=== PATIENT | female | born 1950 | race Two or more races ===

== ENCOUNTER 2022-10-06 15:07 | Inpatient (IN) | payer MEDICARE, OTHER ==
[~2022-10-06] VITALS: Ht 154.9 cm; Wt 88.5 kg
[~2022-10-06 15:07] MED LIST: AMIT50TA3 PO; APIX5TAB MT; BROM5CAP3 PO; CALC0.253 MT; CEPH500C2 PO; ERGO500093 PO; FAMO20TA8 MT; FURO20TA4 MT; HYDROCORT PO; LEVO25TA9 MT; METO25TA4 PO; QUET50TA79; TRAZ-257 MT
[2022-10-06] MEDS ORDERED: FAMO-131 PO (17:37)
[2022-10-06] MEDS ORDERED: HYDR-3642 PO (17:37)
[2022-10-06] MEDS ORDERED: METO25TA4 PO (17:38)
[2022-10-06] MEDS ORDERED: MAG30ORA PO (17:38)
[2022-10-06] MEDS ORDERED: LEVO25TA7 PO (17:38)
[2022-10-06] MEDS ORDERED: ZOLP5TAB2 PO (17:38)
[2022-10-06] MEDS ORDERED: QUET50TA PO (17:38)
[2022-10-06] MEDS ORDERED: APIX5TAB PO (17:38)
[2022-10-06] MEDS ORDERED: MAGN400O6 PO (17:38)
[2022-10-06] MEDS ORDERED: FLUO20TA28 PO (17:38)
[2022-10-06] MEDS ORDERED: ERGO500093 PO (17:38)
[2022-10-06] MEDS ORDERED: CALC0.253 PO (17:38)
[2022-10-06] MEDS ORDERED: ACET-868 PO (17:38)
[2022-10-06] MEDS ORDERED: QUET25TA PO (17:38)
[2022-10-06 18:37] VITALS: BP 102/59; TEMP 97.9
[2022-10-06] MEDS ORDERED: BLOOD SUGAR DIAGNOSTIC 1 EACH STRIP IN ONE (19:00)
[2022-10-06] MEDS ORDERED: MAGNESIUM HYDROXIDE 30 ML UDC PO PRN (19:00)
[2022-10-06] MEDS ORDERED: MAG HYDROX/AL HYDROX/SIMETH 30 ML UDC PO PRN (19:00)
--- NOTE | 2022-10-06 19:00 | NUR ---
NURSE NOTE (ADMIT): PT IS A 72 YEAR OLD FEMALE TRANSFERRED FROM [facility] AND PLACED ON A 5150 HOLD FOR GD/DANGER TO OTHERS. CATHI REPORTS THAT SHE DOES HEAR VOICES AT TIMES AND FEELS ANXIOUS. SHE ADMITS TO GETTING ANGRY AT STAFF AND ARGUMENTATIVE. PT IS ALERT/ORT X3, GUARDED, RESTLESS, ANXIOUS, NEEDY, TANGENTIAL. PT WAS UNKEMPT ON ARRIVAL, BUT BRUSHED HAIR WHEN INFORMED THAT WE NEED TO TAKE HER PICTURE. BOTH DR ESTRELLA AND JOHNNY HARRISON ARE AWARE OF PTS ADMISSION. PSYCH ADMISSION ORDERS IN PLACE. PTS HANDBOOK GIVEN TO PT. DISCOLORATION NOTED TO BILAT ARMS, AND REDNESS TO SACRAL/ BUTTOCKS AREA. Z GUARD ORDERED. PT IN STABLE COND AT THIS TIME. WILL CONT TO MONITOR FOR SAFETY AND BEHAVIOR.
[2022-10-06 20:00] VITALS: BP 100/66; TEMP 98.1; O2SAT 100
[2022-10-06] MEDS: Z GUARD REMEDY 4 OZ OINT TP SCH (21:05)
[2022-10-06] MEDS: TEMAZEPAM 7.5 MG CAPSULE PO PRN (22:33)
[2022-10-06] MEDS: ACETAMINOPHEN 325 MG TABLET PO PRN (22:33)
--- NOTE | 2022-10-06 22:33 | NUR ---
NOTE; PATIENT REQUESTED TYLENOL PO MED FOR GENERAL BODY PAIN.WILL CONTINUE TO MONITOR
--- NOTE | 2022-10-06 22:35 | NUR ---
NOTE; PATIENT REQUESTED RESTORIL PO MED FOR INSOMNIA.WILL CONTINUE TO MONITOR
[2022-10-07 08:00] VITALS: BP 78/53; TEMP 97.9; O2SAT 96
[2022-10-07] MEDS: Z GUARD REMEDY 4 OZ OINT TP SCH ×2 (08:54→22:04)
--- NOTE | 2022-10-07 09:03 | NUR ---
CARLEE Initial Discharge Note: Patient currently resides at [address] [address]; ). CARLEE contacted Polly denson to see if pt is welcomed back. Polly will discuss with treatment team and let this magazine writer know. CARLEE will contact pt's brother Lito ([phone]) and discuss treatment/discharge plan. CARLEE will work with the MD, family, and treatment team.
--- NOTE | 2022-10-07 09:05 | NUR ---
CARLEE Clinical Note: Pt placed on a 5150 hold for danger to others and GD. Per hold, pt was agitated at her facility. Patient currently resides at [place] [id number]; ). CARLEE contacted Polly denson to see if pt is welcomed back. Polly will discuss with treatment team and let this life underwriter know. CARLEE will contact pt's brother Lito ([phone]) and discuss treatment/discharge plan.
[2022-10-07 09:15] LABS: ALANINE AMINOTRANSFERASE 19 U/L (12-78); ALBUMIN 3.2 g/dL (3.4-5.0); ALKALINE PHOSPHATASE 93 U/L (46-116); BILIRUBIN,TOTAL 0.5 mg/dL (0.2-1.0); CALCIUM, SERUM 8.7 mg/dL (8.5-10.1); CARBON DIOXIDE 25 mmol/L (21-32); CHLORIDE 108 mmol/L (98-107); CREATININE 1.7 mg/dL (0.6-1.3); GLUCOSE 109 mg/dL (74-106); POTASSIUM 4.2 mmol/L (3.5-5.1); SODIUM SERUM 141 mmol/L (136-145); TOTAL PROTEIN, SERUM 6.6 g/dL (6.4-8.2); UREA NITROGEN, BLOOD 31 mg/dL (7-18)
[2022-10-07 09:28] LABS: ASPARTATE AMINOTRANSFERASE 17 U/L (15-37)
[2022-10-07 09:34] LABS: BASOPHILS % (AUTO) 0.7 % (0.0-2.0); EOSINOPHILS % (AUTO) 2.1 % (0.0-6.0); HEMATOCRIT 34 % (33-45); HEMOGLOBIN 10.9 g/dL (11.5-14.8); LYMPHOCYTES # (AUTO) 1.8 K/uL (0.8-4.8); LYMPHOCYTES % (AUTO) 32.3 % (20.0-44.0); MEAN CORPUSCULAR HGB CONC 33 g/dl (31.0-36.0); MEAN CORPUSCULAR VOLUME 92 fL (82-100); MONOCYTES # (AUTO) 0.4 K/uL (0.1-1.30); MONOCYTES % (AUTO) 7.8 % (2.0-12.0); NEUTROPHILS # (AUTO) 3.2 K/uL (1.8-8.9); NEUTROPHILS % (AUTO) 57.1 % (43.0-81.0); PLATELET COUNT (AUTO) 307 K/uL (150-450); RED BLOOD CELL COUNT(AUTO) 3.65 MIL/uL (4.0-5.2); WHITE BLOOD COUNT (AUTO) 5.5 K/uL (4.3-11.0)
[2022-10-07 09:41] LABS: CHOLESTEROL 172 mg/dL (<200); HDL CHOLESTEROL 44 mg/dL (40-60); LDL 108 mg/dL (0-99); TRIGLYCERIDES 92 mg/dL (30-150)
[2022-10-07] MEDS ORDERED: QUETIAPINE FUMARATE 25 MG TABLET PO PRN (10:30)
[2022-10-07] MEDS: LORAZEPAM 0.5 MG TABLET PO PRN (13:13)
[2022-10-07] MEDS: ACETAMINOPHEN 325 MG TABLET PO PRN (13:13)
[2022-10-07] MEDS ORDERED: ACETAMINOPHEN 325 MG TABLET PO PRN (14:00)
[2022-10-07] MEDS ORDERED: MAG HYDROX/AL HYDROX/SIMETH 30 ML UDC PO PRN (14:00)
[2022-10-07 16:00] VITALS: BP 90/55; TEMP 97.8; O2SAT 96
[2022-10-07] MEDS: QUETIAPINE FUMARATE 25 MG TABLET PO SCH (17:57)
[2022-10-07] MEDS: FAMOTIDINE (20 MG) 20 MG TABLET PO SCH (17:57)
[2022-10-07] MEDS: QUETIAPINE FUMARATE 100 MG TABLET PO SCH (17:57)
[2022-10-07] MEDS: hydrOXYzine 10 MG TABLET PO SCH (17:58)
[2022-10-07 20:00] VITALS: BP 106/68; TEMP 97.4; O2SAT 97
--- NOTE | 2022-10-07 20:32 | NUR ---
AMMUNITION ASSEMBLY LABORER NOTE: RECEIVED PATIENT IN BED AWAKE,ALERT AND ORIENTED X3,BREATHING EVEN AND NON--LABORED .PATIENT IS DISPLAYING NO S/S OF APPARENT DISTRESS.PATIENT IS ANXIOUS, NEEDY,LOUD ,INTRUSIVE,RESTLESS AT TIMES.PATIENT IS CALM AT THIS TIME.NO C/O PAIN AT THIS TIME.PATIENT ASSISTED ON TURNING AND REPOSITIONING Q2H FOR COMFORT AND CIRCULATION.ALL NEEDS ANTICIPATED.BED IN LOWEST,LOCKED POSITION WITH SIDE RAILS UPX2.WILL CONTINUE TO MONITOR FOR SAFETY AND BEHAVIOR.
[2022-10-07] MEDS: APIXABAN 5 MG TABLET PO SCH (22:03)
[2022-10-07] MEDS: TEMAZEPAM 7.5 MG CAPSULE PO PRN (22:08)
--- NOTE | 2022-10-07 22:08 | NUR ---
NOTE:PATIENT UNABLE TO SLEEP.PATIENT REQUESTED RESTORIL TO HELP HER TO SLEEP.ADMINISTERED RESTORIL 7.5 MG PO ORDER.WILL CONTINUE TO MONITOR.
--- NOTE | 2022-10-08 07:30 | NUR ---
RN OPENING NOTE: RECEIVED PATIENT IN SLEEPING IN BED,ALERT AND ORIENTED X3,BREATHING EVEN AND NON--LABORED .PATIENT IS DISPLAYING NO S/S OF APPARENT DISTRESS.PATIENT IS ANXIOUS, NEEDY,LOUD ,INTRUSIVE,RESTLESS AT TIMES.PATIENT IS CALM AT THIS TIME.NO C/O PAIN AT THIS TIME.PATIENT ASSISTED ON TURNING AND REPOSITIONING Q2H FOR COMFORT AND CIRCULATION. WILL ADMINISTER ALL SCHEDULED MEDS ORDERED. .BED IN LOWEST,LOCKED POSITION WITH SIDE RAILS UPX2.WILL CONTINUE TO MONITOR FOR SAFETY AND BEHAVIOR.
[2022-10-08 08:00] VITALS: BP 100/65; TEMP 97.8; O2SAT 96
[2022-10-08] MEDS: hydrOXYzine 10 MG TABLET PO SCH ×2 (08:53→16:32)
[2022-10-08] MEDS: LEVOTHYROXINE SODIUM 25 MCG TABLET PO SCH (08:53)
[2022-10-08] MEDS: QUETIAPINE FUMARATE 100 MG TABLET PO SCH ×2 (08:53→16:32)
[2022-10-08] MEDS: QUETIAPINE FUMARATE 25 MG TABLET PO SCH ×2 (08:53→16:32)
[2022-10-08] MEDS: FAMOTIDINE (20 MG) 20 MG TABLET PO SCH ×2 (08:53→16:32)
[2022-10-08] MEDS: APIXABAN 5 MG TABLET PO SCH ×2 (08:54→21:27)
[2022-10-08] MEDS: METOPROLOL SUCCINATE 25 MG TAB.SR.24H PO SCH (09:00)
[2022-10-08] MEDS: Z GUARD REMEDY 4 OZ OINT TP SCH ×2 (09:04→21:27)
[2022-10-08 16:00] VITALS: BP 112/66; TEMP 97.8; O2SAT 94
--- NOTE | 2022-10-08 18:08 | NUR ---
GPS RN CLOSING NOTE: PATIENT IN RESTING IN BED,ALERT AND ORIENTED X3,BREATHING EVEN AND NON--LABORED .PATIENT IS DISPLAYING NO S/S OF APPARENT DISTRESS.PATIENT IS ANXIOUS, NEEDY,LOUD, ISOLATIVE, ,INTRUSIVE,RESTLESS AT TIMES.PATIENT IS CALM AT THIS TIME.NO C/O PAIN AT THIS TIME.PATIENT ASSISTED ON TURNING AND REPOSITIONING Q2H FOR COMFORT AND CIRCULATION. WILL ADMINISTER ALL SCHEDULED MEDS ORDERED. MEDICATION COMPLIANT BUT NEEDS REINFORCEMENT.BED IN LOWEST,LOCKED POSITION WITH SIDE RAILS UPX2.WILL CONTINUE TO MONITOR FOR SAFETY AND BEHAVIOR. WILL ENDORSE TO NEXT SHIFT
[2022-10-08 20:00] VITALS: BP 115/72; TEMP 97.4; O2SAT 97
[2022-10-08] MEDS: TEMAZEPAM 7.5 MG CAPSULE PO PRN (21:27)
[2022-10-09 08:00] VITALS: BP 90/65; TEMP 97.9; O2SAT 99
[2022-10-09] MEDS: LEVOTHYROXINE SODIUM 25 MCG TABLET PO SCH (08:30)
[2022-10-09] MEDS: APIXABAN 5 MG TABLET PO SCH ×2 (08:31→21:27)
[2022-10-09] MEDS: hydrOXYzine 10 MG TABLET PO SCH ×2 (08:32→17:13)
[2022-10-09] MEDS: FAMOTIDINE (20 MG) 20 MG TABLET PO SCH ×2 (08:32→17:13)
[2022-10-09] MEDS: Z GUARD REMEDY 4 OZ OINT TP SCH ×2 (08:33→21:30)
[2022-10-09] MEDS: METOPROLOL SUCCINATE 25 MG TAB.SR.24H PO SCH (08:33)
[2022-10-09 08:35] LABS: BILIRUBIN,URINE NEGATIVE (NEGATIVE); COLOR,URINE YELLOW (YELLOW); LEUKOCYTE ESTERASE ,URINE TRACE (NEGATIVE); NITRITE, URINE POSITIVE (NEGATIVE); PH,URINE 5.5 (5.0-8.0); PROTEIN,URINE NEGATIVE (NEGATIVE); UGLUCOSE NEGATIVE (NEGATIVE); UROBILINOGEN,URINE 0.2 EU/dL (0.2)
[2022-10-09 08:37] LABS: BACTERIA,URINE Many /HPF (None Seen); RBC,URINE 0-2 /HPF (0-2); SQUAMOUS EPITHELIAL CELL,UR Few /HPF (None Seen)
[2022-10-09 08:48] LABS: CALCIUM, SERUM 8.7 mg/dL (8.5-10.1); CARBON DIOXIDE 22 mmol/L (21-32); CHLORIDE 107 mmol/L (98-107); CREATININE 1.4 mg/dL (0.6-1.3); GLUCOSE 88 mg/dL (74-106); POTASSIUM 4.9 mmol/L (3.5-5.1); SODIUM SERUM 138 mmol/L (136-145); UREA NITROGEN, BLOOD 33 mg/dL (7-18)
[2022-10-09] MEDS: QUETIAPINE FUMARATE 100 MG TABLET PO SCH ×2 (09:00→17:13)
[2022-10-09] MEDS: QUETIAPINE FUMARATE 25 MG TABLET PO SCH ×2 (09:00→17:12)
--- NOTE | 2022-10-09 13:23 | NUR ---
mateo held in am due to low bp.dr. kennedy aware.
--- NOTE | 2022-10-09 13:47 | NUR ---
given maalox for indigestion.
--- NOTE | 2022-10-09 15:11 | NUR ---
ua sent on business intelligence developer.now lab doing urine culture.
[2022-10-09 16:00] VITALS: BP 117/73; TEMP 97.8; O2SAT 99
--- NOTE | 2022-10-09 18:31 | NUR ---
demanding and calling out freq.
--- NOTE | 2022-10-09 18:45 | NUR ---
pt. asking for bandaid-rn went in and noted skin tear on dorsal surface of lt. hand.photo taken and steri strips applied.
--- NOTE | 2022-10-09 20:21 | NUR ---
MACHINIST TOOL AND DIE NOTE: RECEIVED PATIENT IN BED AWAKE,ALERT AND ORIENTED X3,BREATHING EVEN AND NON--LABORED,NO SOB..PATIENT IS DISPLAYING NO S/S OF APPARENT DISTRESS.PATIENT IS ANXIOUS, NEEDY,LOUD ,INTRUSIVE,RESTLESS AT TIMES.PATIENT IS CALM AT THIS TIME.NO C/O PAIN AT THIS TIME.PATIENT ASSISTED ON TURNING AND REPOSITIONING Q2H FOR COMFORT AND CIRCULATION.ALL NEEDS ANTICIPATED.BED IN LOWEST,LOCKED POSITION WITH SIDE RAILS UPX2.WILL CONTINUE TO MONITOR FOR SAFETY AND BEHAVIOR.
[2022-10-09] MEDS: TEMAZEPAM 7.5 MG CAPSULE PO PRN (21:31)
--- NOTE | 2022-10-09 21:32 | NUR ---
NOTE:PATIENT UNABLE TO SLEEP.PATIENT REQUESTED RESTORIL TO HELP HER TO SLEEP.ADMINISTERED RESTORIL 7.5 MG PO ORDER.WILL CONTINUE TO MONITOR
--- NOTE | 2022-10-10 07:00 | NUR ---
SCADA TECHNICIAN OPENING NOTE PATIENT AWAKE, ALERT AND ORIENTED X3, DENIES PAIN, DENIES DISCOMFORT AT THIS TIME. NO S/S OF MOOD PROBLEMS NOTED. SAFETY MEASURES IN PLACE, BED LOCKED TO THE LOWEST POSITION, SIDE RAILS UPX2. TABLE AND WALKER WITHIN REACH. CONT. TO MONITOR.
[2022-10-10 08:00] VITALS: BP 113/83; TEMP 97.9; O2SAT 98
[2022-10-10] MEDS: METOPROLOL SUCCINATE 25 MG TAB.SR.24H PO SCH (09:44)
[2022-10-10] MEDS: QUETIAPINE FUMARATE 25 MG TABLET PO SCH ×2 (09:44→18:06)
[2022-10-10] MEDS: QUETIAPINE FUMARATE 100 MG TABLET PO SCH ×3 (09:45→18:07)
[2022-10-10] MEDS: hydrOXYzine 10 MG TABLET PO SCH ×2 (09:45→18:06)
[2022-10-10] MEDS: LEVOTHYROXINE SODIUM 25 MCG TABLET PO SCH (09:45)
[2022-10-10] MEDS: APIXABAN 5 MG TABLET PO SCH ×2 (09:47→21:21)
[2022-10-10] MEDS: Z GUARD REMEDY 4 OZ OINT TP SCH ×2 (09:54→21:36)
[2022-10-10] MEDS: FAMOTIDINE (20 MG) 20 MG TABLET PO SCH ×2 (09:54→18:06)
[2022-10-10] MEDS: LORAZEPAM 0.5 MG TABLET PO PRN (12:42)
--- NOTE | 2022-10-10 12:42 | NUR ---
LASER ENGRAVER NOTE PATIENT C/O OF ANXIETY AND PAIN ON BOTH LEGS. ATIVAN PO GIVEN DIRECTED. ALSO APPLIED WARM BLANKET TO BOTH LEGS. INSTRUCTED TO PATIENT NOT TO GET OUT OF BED WITHOUT ASSISTANCE, THERE IS RISK FOR FALLS DUE TO MEDICATION. PATIENT VERBALIZED UNDERSTANDING INSTRUCTIONS. CONT. TO MONITOR.+
[2022-10-10 16:00] VITALS: BP 92/58; TEMP 97.8; O2SAT 99
[2022-10-10 16:01] VITALS: BP 92/58; TEMP 97.8; O2SAT 99
--- NOTE | 2022-10-10 18:44 | NUR ---
SURFACE LAY OUT TECHNICIAN NOTE SEROQUEL HELD BY DR IKE VARGAS DUE TO LOW B/P 82/63
--- NOTE | 2022-10-10 18:45 | NUR ---
ZIPPER JOINER CLOSING NOTE PATIENT, CALM, AWAKE,ALERT AND ORIENTED X3. DENIES PAIN. NO S/S OF DISCOMFORT NOTED. PATIENT SEROQUEL [address] HOLD PER [address] RAMIRES DUE TO LOW B/P 83/68. PATIENT DENIES DIZZINESS AT PRESENT. PATIENT INSTRUCTED NOT TO GET OUT OF BED WITHOUT ASSISTANCE, DUE TO RISK FOR FALLS. PATIENT VERBALIZED UNDERSTANDING INSTRUCTIONS. SAFETY MEASURES IN PLACE: BED LOCKED TO THE LOWEST POSITION, TABLE WITHIN REACH. I WILL ENDORSE TO THE FOLLOWING NURSE FOR SERGIO.
[2022-10-10] MEDS: TEMAZEPAM 7.5 MG CAPSULE PO PRN (22:07)
--- NOTE | 2022-10-10 22:10 | NUR ---
RN NOTE; PATIENT ASKING FOR SLEEPING PILL,PRN RESTORIL 7.5MG WAS GIVEN.
[2022-10-11 07:31] LABS: CALCIUM, SERUM 8.7 mg/dL (8.5-10.1); CREATININE 1.3 mg/dL (0.6-1.3)
[2022-10-11 08:00] VITALS: BP 96/57; TEMP 98.1; O2SAT 97
[2022-10-11] MEDS: METOPROLOL SUCCINATE 25 MG TAB.SR.24H PO SCH (09:00)
[2022-10-11] MEDS: Z GUARD REMEDY 4 OZ OINT TP SCH ×2 (09:00→21:10)
[2022-10-11] MEDS: QUETIAPINE FUMARATE 25 MG TABLET PO SCH ×2 (09:21→16:42)
[2022-10-11] MEDS: LEVOTHYROXINE SODIUM 25 MCG TABLET PO SCH (09:21)
[2022-10-11] MEDS: FAMOTIDINE (20 MG) 20 MG TABLET PO SCH ×2 (09:21→16:42)
[2022-10-11] MEDS: hydrOXYzine 10 MG TABLET PO SCH ×2 (09:27→16:42)
[2022-10-11] MEDS: APIXABAN 5 MG TABLET PO SCH ×2 (09:29→21:11)
[2022-10-11] MEDS: QUETIAPINE FUMARATE 100 MG TABLET PO SCH ×2 (09:34→16:42)
[2022-10-11] MEDS: CEPHALEXIN MONOHYDRATE 500 MG CAPSULE PO SCH ×2 (12:12→21:10)
--- NOTE | 2022-10-11 14:54 | NUR ---
SW Family Contact: SW attempted to contact pt's brother Lito ([phone]) and left a voicemail.
[2022-10-11 16:00] VITALS: BP 103/65; TEMP 98.1; O2SAT 96
--- NOTE | 2022-10-11 18:49 | NUR ---
GPS RN CLOSING NOTES PATIENT, AWAKE,ALERT AND ORIENTED X3. ANXIOUS. NO S/S OF DISCOMFORT NOTED. PATIENT WAS SHOUTING DURING LUNCH AND ASKING FOR A GRILLED CHEESE SANDWICH BUT THE DIETARY DID NOT ALLOW HER DUE TO HER DIET STATUS. DIETARY ALLOWED HER FOR ANOTHER TYPE OF SANDWICH. PATIENT KEPT ON SHOUTING THAT SHE WANTS TO GO HOME RIGHT AFTER FINISHING THE SANDWICH. EXPLAINED TO HER THAT SHE NEEDS TO BE MONITORED. PATIENT VERBALIZES UNDERSTANDING. ALL DUE MEDS GIVEN. ALL NURSING NEEDS ATTENDED. SAFETY MEASURES IMPLEMENTED: BED LOCKED TO THE LOWEST POSITION. TABLE WITHIN EASY REACH. WILL ENDORSE TO THE THIN FILM TECHNICIAN NURSE FOR CONTINUITY OF CARE.
[2022-10-11] MEDS: LORAZEPAM 0.5 MG TABLET PO PRN (19:28)
[2022-10-12] MEDS: ACETAMINOPHEN 325 MG TABLET PO PRN ×2 (03:03→18:56)
[2022-10-12 08:00] VITALS: BP 100/57; TEMP 98.1; O2SAT 96
[2022-10-12] MEDS: QUETIAPINE FUMARATE 100 MG TABLET PO SCH ×2 (08:35→16:55)
[2022-10-12] MEDS: QUETIAPINE FUMARATE 25 MG TABLET PO SCH (08:35)
[2022-10-12] MEDS: FAMOTIDINE (20 MG) 20 MG TABLET PO SCH ×2 (08:35→16:55)
[2022-10-12] MEDS: CEPHALEXIN MONOHYDRATE 500 MG CAPSULE PO SCH ×2 (08:35→20:56)
[2022-10-12] MEDS: hydrOXYzine 10 MG TABLET PO SCH ×2 (08:35→16:56)
[2022-10-12] MEDS: LEVOTHYROXINE SODIUM 25 MCG TABLET PO SCH (08:35)
[2022-10-12] MEDS: METOPROLOL SUCCINATE 25 MG TAB.SR.24H PO SCH (08:42)
[2022-10-12] MEDS: GABAPENTIN 100 MG CAPSULE PO SCH ×2 (09:16→16:55)
[2022-10-12] MEDS: Z GUARD REMEDY 4 OZ OINT TP SCH ×2 (09:16→20:59)
--- NOTE | 2022-10-12 10:04 | NUR ---
MEDICATION NOTE ELIQUIS MEDICATION WITHDRAWN AGAIN DUE TO MEDICATION WASTE. MEDICATION WAS NOT ADMINISTERED THE FIRST TIME. CHARGE NURSE AWARE
[2022-10-12] MEDS: APIXABAN 5 MG TABLET PO SCH ×2 (10:10→20:58)
--- NOTE | 2022-10-12 11:42 | NUR ---
Court Notification: SW attempted to contact pt's brother Lito ([phone]) to notify of [id number] hearing.
--- NOTE | 2022-10-12 11:42 | NUR ---
Court Hearing: Patient's court hearing for [id number] was today and it was upheld for GD.
--- NOTE | 2022-10-12 13:31 | NUR ---
CARLEE Family Contact: SW spoke with pt's brother Lito ([phone]) and is aware of pt's discharge back to [facility].
[2022-10-12 16:00] VITALS: BP 103/65; TEMP 98.7; O2SAT 97
[2022-10-12] MEDS: LORAZEPAM 0.5 MG TABLET PO PRN (19:45)
[2022-10-12 20:30] VITALS: BP 97/64; TEMP 97.5; O2SAT 97
[2022-10-12] MEDS ORDERED: QUETIAPINE FUMARATE 25 MG TABLET PO SCH (22:00)
[2022-10-12] MEDS: TEMAZEPAM 7.5 MG CAPSULE PO PRN (22:02)
[2022-10-13 07:44] LABS: CALCIUM, SERUM 8.7 mg/dL (8.5-10.1); CARBON DIOXIDE 24 mmol/L (21-32); CHLORIDE 107 mmol/L (98-107); CREATININE 1.4 mg/dL (0.6-1.3); GLUCOSE 81 mg/dL (74-106); POTASSIUM 5.2 mmol/L (3.5-5.1); SODIUM SERUM 140 mmol/L (136-145); UREA NITROGEN, BLOOD 30 mg/dL (7-18)
[2022-10-13 08:00] VITALS: BP 100/57; TEMP 98.1; O2SAT 96
--- NOTE | 2022-10-13 08:05 | NUR ---
GPS RN NOTE:. RECEIVED PT IN BED. ALERT AND ORIENTED X3,BREATHING EVEN AND UNLABORED. PATIENT IS ANXIOUS, NEEDY,LOUD ,INTRUSIVE,RESTLESS AT TIMES.NO C/O PAIN AT THIS TIME.PATIENT ASSISTED ON TURNING AND REPOSITIONING Q2H FOR COMFORT AND CIRCULATION .BED IN LOWEST,LOCKED POSITION WITH SIDE RAILS UPX2.WILL CONTINUE TO MONITOR FOR SAFETY AND BEHAVIOR.
--- NOTE | 2022-10-13 08:10 | NUR ---
CARLEE Discharge Note: Patient will be discharged to longterm facility [facility] [address], [place] [address]; ). Please arrange transportation at 1PM. Eyelet Riveter spoke with Polly board stacker at [facility]; ([phone]), who stated patient will be accepted today. SW contacted pts brother Lito ([phone]) and attempted to leave a voicemail. Patient is alert and oriented x2 and is unable to plan for self-care. Patient denies any suicidal or homicidal ideations. Patient is aware and agreeable with discharge plans. Patient will continue to follow-up with Dr. Martinez (psychiatrist) [address] [facility] [address], [place] [address]; ([phone]) and (Certified Orthotist Practice Manager) Dr. Kay [address] [facility] [address], [place] [address]; ([phone]). Patient presents with euthymic and congruent mood.
[2022-10-13] MEDS: LEVOTHYROXINE SODIUM 25 MCG TABLET PO SCH (08:42)
[2022-10-13] MEDS: FAMOTIDINE (20 MG) 20 MG TABLET PO SCH (08:42)
[2022-10-13] MEDS: CEPHALEXIN MONOHYDRATE 500 MG CAPSULE PO SCH (08:42)
[2022-10-13] MEDS: hydrOXYzine 10 MG TABLET PO SCH (08:42)
[2022-10-13] MEDS: GABAPENTIN 100 MG CAPSULE PO SCH (08:42)
[2022-10-13 08:43] VITALS: BP 100/57
[2022-10-13] MEDS: METOPROLOL SUCCINATE 25 MG TAB.SR.24H PO SCH (08:43)
[2022-10-13] MEDS: APIXABAN 5 MG TABLET PO SCH (08:44)
[2022-10-13] MEDS: Z GUARD REMEDY 4 OZ OINT TP SCH (08:46)
[2022-10-13] MEDS: QUETIAPINE FUMARATE 100 MG TABLET PO SCH (08:46)
--- NOTE | 2022-10-13 10:00 | NUR ---
RN-CO: DR ESTRELLA ORDERED TO DISCONTINUE HOLD AND DISCHARGE PATIENT TO [facility]. NOTED AND PRIMARY RN TANVIR Helms MADE AWARE.
[2022-10-13] MEDS ORDERED: SODIUM POLYSTYRENE SULFONATE 15 G/60 ML BOTTLE PO ONE (10:30)
--- NOTE | 2022-10-13 13:45 | NUR ---
MACHINE BOOKKEEPER NOTE: THIS IS A 72 YR OLD FEMALE D/C TO [facility] REPORT. IN STABLE CONDITION. COMPLIANT WITH MEDS, COOPERATIVE WITH TX PLANS. PT DENIES SI/HI AND INSTRUCTED TO GO TO THE CLOSEST ER IF DEVELOPING SI/HI. BEHAVIOR IMPROVED, PSYCHIATRIC TX PLANS MET, MEDICAL TX PLANS DEFERRED FOR CONTINUAL MONITORING. EDUCATED PT ABOUT AFTER CARE PLANS (EXIT CARE) AND COPY PROVIDED. RETURNED PERSONAL BELONGINGS TO PT. MED RECON WITH PSYC DR. ESTRELLA AND MEDICAL DR. ELLIOTT. REPORT GIVEN TO ERNIE VERGARA. PT SIGNED DISCHARGE PAPERWORK. WOUND PICTURES TAKE AND DOCUMENTED IN CHART. PT LEFT THE UNIT AT 1345. PICKED UP BY [facility] UNIT [id number]. PT LEFT IN STABLE CONDITION.
== END 2022-10-13 13:45 | DRG 885 ==
LOC: GPS 15:07
PROVIDERS: ADMIT Psychiatry & Neurology Psychosomatic Medicine; ATTEND Internal Medicine
DX: F32.3 Major depressive disorder, single episode, severe with psychotic features (principal); N18.9 Chronic kidney disease, unspecified; N17.0 Acute kidney failure with tubular necrosis; E44.0 Moderate protein-calorie malnutrition; I13.0 Hypertensive heart and chronic kidney disease with heart failure and stage 1 through stage 4 chronic kidney disease, or unspecified chronic kidney disease; I48.20 Chronic atrial fibrillation, unspecified; N39.0 Urinary tract infection, site not specified; R45.851 Suicidal ideations; I50.32 Chronic diastolic (congestive) heart failure; F29 Unspecified psychosis not due to a substance or known physiological condition; Z79.01 Long term (current) use of anticoagulants; B96.20 Unspecified Escherichia coli [E. coli] as the cause of diseases classified elsewhere; D63.8 Anemia in other chronic diseases classified elsewhere; I25.10 Atherosclerotic heart disease of native coronary artery without angina pectoris; Z85.038 Personal history of other malignant neoplasm of large intestine; Z86.718 Personal history of other venous thrombosis and embolism; Z86.711 Personal history of pulmonary embolism; F43.10 Post-traumatic stress disorder, unspecified; E88.09 Other disorders of plasma-protein metabolism, not elsewhere classified; E03.9 Hypothyroidism, unspecified; Z68.36 Body mass index [BMI] 36.0-36.9, adult; F60.3 Borderline personality disorder; G47.33 Obstructive sleep apnea (adult) (pediatric); Z90.5 Acquired absence of kidney
CPT/HCPCS: 36415; 80048-TC; 80053-TC; 80061-TC; 81001; 85025-TC; 87086-TC; 97112-TC; 97116-TC; 97530-TC; Q0177

== ENCOUNTER 2023-05-20 11:38 | Inpatient (IN) | payer MEDICARE, OTHER ==
[~2023-05-20] VITALS: Ht 165.1 cm; Wt 105.2 kg
[~2023-05-20 11:38] MED LIST changes: +ACET-868 PO; -AMIT50TA3 PO; -APIX5TAB MT; +APIX5TAB PO; -BROM5CAP3 PO; -CALC0.253 MT; +CALC0.253 PO; -CEPH500C2 PO; +FAMO-131 PO; -FAMO20TA8 MT; +FLUO20TA28 PO; -FURO20TA4 MT; +HYDR-3642 PO; -HYDROCORT PO; +LEVO25TA7 PO; -LEVO25TA9 MT; +MAG30ORA PO; +MAGN400O6 PO; +QUET25TA PO; +QUET50TA PO; -QUET50TA79; -TRAZ-257 MT; +ZOLP5TAB2 PO
[2023-05-20] MEDS ORDERED: QUET50TA PO (12:21)
[2023-05-20] MEDS ORDERED: GABA-532 PO (12:21)
[2023-05-20] MEDS ORDERED: MUPI15CR TP (12:21)
[2023-05-20] MEDS ORDERED: ALLA266C2 TP (12:21)
[2023-05-20] MEDS ORDERED: MAG355OR18 PO (12:21)
[2023-05-20 12:52] LABS: BASOPHILS % (AUTO) 0.4 % (0.0-2.0); EOSINOPHILS # (AUTO) 0.1 K/uL (0.0-0.7); EOSINOPHILS % (AUTO) 0.8 % (0.0-6.0); HEMATOCRIT 27 % (33-45); HEMOGLOBIN 8.3 g/dL (11.5-14.8); MEAN CORPUSCULAR HEMOGLOBIN 29 PG (26.0-33.0); MEAN CORPUSCULAR HGB CONC 31 g/dl (31.0-36.0); MEAN CORPUSCULAR VOLUME 94 fL (82-100); MONOCYTES # (AUTO) 0.6 K/uL (0.1-1.30); MONOCYTES % (AUTO) 6.3 % (2.0-12.0); NEUTROPHILS # (AUTO) 7.6 K/uL (1.8-8.9); NEUTROPHILS % (AUTO) 81.5 % (43.0-81.0); PLATELET COUNT (AUTO) 330 K/uL (150-450); RED BLOOD CELL COUNT(AUTO) 2.84 MIL/uL (4.0-5.2); RED CELL DISTRIBUTION WIDTH 16.3 % (11.5-15.0); WHITE BLOOD COUNT (AUTO) 9.3 K/uL (4.3-11.0)
[2023-05-20 12:55] LABS: CALCIUM, SERUM 7.9 mg/dL (8.5-10.1); CARBON DIOXIDE 26 mmol/L (21-32); CHLORIDE 106 mmol/L (98-107); CREATININE 1.6 mg/dL (0.6-1.3); GLUCOSE 87 mg/dL (74-106); POTASSIUM 4.4 mmol/L (3.5-5.1); SODIUM SERUM 135 mmol/L (136-145); UREA NITROGEN, BLOOD 17 mg/dL (7-18)
[2023-05-20] MEDS ORDERED: Z GUARD REMEDY 4 OZ OINT TP PRN (14:00)
[2023-05-20] MEDS ORDERED: MAG HYDROX/AL HYDROX/SIMETH 30 ML UDC PO PRN (14:00)
[2023-05-20] MEDS ORDERED: MAGNESIUM HYDROXIDE 30 ML UDC PO PRN (14:00)
[2023-05-20] MEDS ORDERED: ONDANSETRON HCL/PF 4 MG/2 ML VIAL IVP PRN (14:00)
[2023-05-20] MEDS ORDERED: ACETAMINOPHEN 325 MG TABLET PO PRN (14:00)
[2023-05-20] MEDS: IV NS 0.9% 1,000 ML BAG IV ONE (14:30)
[2023-05-20 16:50] VITALS: BP 114/47; TEMP 98.5; O2SAT 98
[2023-05-20 20:40] VITALS: BP 114/47; TEMP 98.5; O2SAT 98
[2023-05-20] MEDS: TEMAZEPAM 15 MG CAPSULE PO PRN (23:07)
[2023-05-21 04:00] VITALS: BP 107/72; TEMP 98.6; O2SAT 95
[2023-05-21 07:11] LABS: BASOPHILS % (AUTO) 0.2 % (0.0-2.0); EOSINOPHILS # (AUTO) 0.1 K/uL (0.0-0.7); EOSINOPHILS % (AUTO) 1.1 % (0.0-6.0); HEMATOCRIT 27 % (33-45); HEMOGLOBIN 8.5 g/dL (11.5-14.8); LYMPHOCYTES # (AUTO) 1.1 K/uL (0.8-4.8); MEAN CORPUSCULAR HEMOGLOBIN 30 PG (26.0-33.0); MEAN CORPUSCULAR HGB CONC 31 g/dl (31.0-36.0); MEAN CORPUSCULAR VOLUME 96 fL (82-100); MONOCYTES # (AUTO) 0.7 K/uL (0.1-1.30); MONOCYTES % (AUTO) 7.3 % (2.0-12.0); NEUTROPHILS # (AUTO) 7.7 K/uL (1.8-8.9); NEUTROPHILS % (AUTO) 80.4 % (43.0-81.0); PLATELET COUNT (AUTO) 330 K/uL (150-450); RED BLOOD CELL COUNT(AUTO) 2.84 MIL/uL (4.0-5.2); RED CELL DISTRIBUTION WIDTH 16.9 % (11.5-15.0); WHITE BLOOD COUNT (AUTO) 9.6 K/uL (4.3-11.0)
[2023-05-21] MEDS: PANTOPRAZOLE 40 MG TABLET.DR PO SCH (07:26)
[2023-05-21 07:52] LABS: ALANINE AMINOTRANSFERASE 6 U/L (12-78); ALBUMIN 1.8 g/dL (3.4-5.0); ALKALINE PHOSPHATASE 100 U/L (46-116); ASPARTATE AMINOTRANSFERASE 14 U/L (15-37); BILIRUBIN,DIRECT 0.2 mg/dL (0.0-0.2); BILIRUBIN,TOTAL 0.5 mg/dL (0.2-1.0); CALCIUM, SERUM 8.3 mg/dL (8.5-10.1); CARBON DIOXIDE 21 mmol/L (21-32); CHLORIDE 107 mmol/L (98-107); CREATININE 1.4 mg/dL (0.6-1.3); GLUCOSE 77 mg/dL (74-106); MAGNESIUM 2.2 mg/dL (1.8-2.4); PHOSPHORUS 3.3 mg/dL (2.5-4.9); POTASSIUM 4.3 mmol/L (3.5-5.1); SODIUM SERUM 137 mmol/L (136-145); TOTAL PROTEIN, SERUM 5.8 g/dL (6.4-8.2); UREA NITROGEN, BLOOD 17 mg/dL (7-18)
[2023-05-21 08:00] VITALS: BP 91/53; TEMP 98.7; O2SAT 99
[2023-05-21 09:01] LABS: FERRITIN 46 ng/mL (8-388); THYROID STIMULATING HORMONE 0.427 uIU/mL (0.358-3.74)
[2023-05-21 09:20] LABS: IRON, SERUM 17 ug/dl (50-175); TOTAL IRON BINDING CAPACITY 166 ug/dl (250-450)
[2023-05-21 16:00] VITALS: BP 115/64; TEMP 98.3; O2SAT 99
[2023-05-21] MEDS: SOD FERRIC GLUC 125 MG in IV NS 0.9% 100 ML IV SCH (16:09)
[2023-05-21 20:00] VITALS: BP 123/94; TEMP 98; O2SAT 97
[2023-05-22 04:00] VITALS: BP 95/68; TEMP 98; O2SAT 95
[2023-05-22 07:14] LABS: BASOPHILS % (AUTO) 0.2 % (0.0-2.0); EOSINOPHILS # (AUTO) 0.1 K/uL (0.0-0.7); EOSINOPHILS % (AUTO) 1.5 % (0.0-6.0); HEMATOCRIT 28 % (33-45); HEMOGLOBIN 8.6 g/dL (11.5-14.8); LYMPHOCYTES # (AUTO) 1.2 K/uL (0.8-4.8); MEAN CORPUSCULAR HEMOGLOBIN 30 PG (26.0-33.0); MEAN CORPUSCULAR HGB CONC 31 g/dl (31.0-36.0); MEAN CORPUSCULAR VOLUME 95 fL (82-100); MONOCYTES # (AUTO) 0.7 K/uL (0.1-1.30); MONOCYTES % (AUTO) 7.8 % (2.0-12.0); NEUTROPHILS # (AUTO) 6.4 K/uL (1.8-8.9); NEUTROPHILS % (AUTO) 76.5 % (43.0-81.0); PLATELET COUNT (AUTO) 356 K/uL (150-450); RED CELL DISTRIBUTION WIDTH 16.6 % (11.5-15.0); WHITE BLOOD COUNT (AUTO) 8.3 K/uL (4.3-11.0)
[2023-05-22 07:50] LABS: ALANINE AMINOTRANSFERASE 6 U/L (12-78); ALBUMIN 1.8 g/dL (3.4-5.0); ALKALINE PHOSPHATASE 98 U/L (46-116); ASPARTATE AMINOTRANSFERASE 11 U/L (15-37); BILIRUBIN,TOTAL 0.5 mg/dL (0.2-1.0); CALCIUM, SERUM 8.5 mg/dL (8.5-10.1); CARBON DIOXIDE 25 mmol/L (21-32); CHLORIDE 107 mmol/L (98-107); CREATININE 1.4 mg/dL (0.6-1.3); GLUCOSE 79 mg/dL (74-106); MAGNESIUM 2.2 mg/dL (1.8-2.4); PHOSPHORUS 3.2 mg/dL (2.5-4.9); POTASSIUM 4.4 mmol/L (3.5-5.1); SODIUM SERUM 138 mmol/L (136-145); TOTAL PROTEIN, SERUM 5.8 g/dL (6.4-8.2); UREA NITROGEN, BLOOD 17 mg/dL (7-18)
[2023-05-22 08:02] LABS: CREATINE KINASE, TOTAL 27 U/L (26-192)
[2023-05-22 08:42] VITALS: BP 123/94; TEMP 98; O2SAT 97
[2023-05-22 16:21] VITALS: BP 104/72; TEMP 98; O2SAT 97
[2023-05-22 20:00] VITALS: BP 99/51; TEMP 97.6; O2SAT 97
[2023-05-22] MEDS: HYDROCODONE/APAP 5/325MG TABLET PO PRN (21:41)
[2023-05-23 04:00] VITALS: BP 106/64; TEMP 98; O2SAT 96
[2023-05-23 07:03] LABS: BASOPHILS % (AUTO) 0.2 % (0.0-2.0); EOSINOPHILS # (AUTO) 0.1 K/uL (0.0-0.7); EOSINOPHILS % (AUTO) 1.7 % (0.0-6.0); HEMATOCRIT 27 % (33-45); HEMOGLOBIN 8.5 g/dL (11.5-14.8); LYMPHOCYTES # (AUTO) 1.3 K/uL (0.8-4.8); LYMPHOCYTES % (AUTO) 15.4 % (20.0-44.0); MEAN CORPUSCULAR HEMOGLOBIN 30 PG (26.0-33.0); MEAN CORPUSCULAR HGB CONC 31 g/dl (31.0-36.0); MEAN CORPUSCULAR VOLUME 95 fL (82-100); MONOCYTES # (AUTO) 0.7 K/uL (0.1-1.30); NEUTROPHILS # (AUTO) 6.1 K/uL (1.8-8.9); NEUTROPHILS % (AUTO) 73.7 % (43.0-81.0); PLATELET COUNT (AUTO) 336 K/uL (150-450); RED BLOOD CELL COUNT(AUTO) 2.83 MIL/uL (4.0-5.2); RED CELL DISTRIBUTION WIDTH 16.4 % (11.5-15.0); WHITE BLOOD COUNT (AUTO) 8.3 K/uL (4.3-11.0)
[2023-05-23 07:31] LABS: CALCIUM, SERUM 8.4 mg/dL (8.5-10.1); CARBON DIOXIDE 23 mmol/L (21-32); CHLORIDE 106 mmol/L (98-107); CREATININE 1.3 mg/dL (0.6-1.3); GLUCOSE 74 mg/dL (74-106); POTASSIUM 4.1 mmol/L (3.5-5.1); SODIUM SERUM 138 mmol/L (136-145); UREA NITROGEN, BLOOD 17 mg/dL (7-18)
[2023-05-23 08:00] VITALS: BP 109/60; TEMP 98.3; O2SAT 98
[2023-05-23 09:09] LABS: IMMUNOGLOBULIN A, SERUM 422 mg/dL (64-422); IMMUNOGLOBULIN G, SERUM 1237 mg/dL (586-1602); IMMUNOGLOBULIN M, SERUM 31 mg/dL (26-217)
[2023-05-23 20:48] VITALS: BP 110/60; TEMP 99; O2SAT 97
[2023-05-24 01:09] LABS: CANCER AG, 15-3 14.2 U/mL (0.0-25.0)
[2023-05-24 04:11] VITALS: BP 102/57; TEMP 98; O2SAT 98
[2023-05-24 05:11] LABS: *SPE A/G RATIO 0.7 (0.7-1.7); *SPE ALBUMIN 2.1 g/dL (2.9-4.4); *SPE ALPHA-1-GLOBULIN 0.3 g/dL (0.0-0.4); *SPE ALPHA-2-GLOBULIN 0.8 g/dL (0.4-1.0); *SPE BETA GLOBULIN 0.8 g/dL (0.7-1.3); *SPE GLOBULIN, TOTAL 3.1 g/dL (2.2-3.9); *SPE M-SPIKE Not Observed g/dL (Not Observed); *SPE PROTEIN TOTAL 5.2 g/dL (6.0-8.5); *SPEGAMMA GLOBULIN 1.3 g/dL (0.4-1.8); PTH, INTACT 72 pg/mL (15-65)
[2023-05-24 05:11] LABS: *SPE A/G RATIO 0.6 (0.7-1.7); *SPE ALPHA-1-GLOBULIN 0.3 g/dL (0.0-0.4); *SPE ALPHA-2-GLOBULIN 0.8 g/dL (0.4-1.0); *SPE BETA GLOBULIN 0.8 g/dL (0.7-1.3); *SPE GLOBULIN, TOTAL 3.2 g/dL (2.2-3.9); *SPE M-SPIKE 0.2 g/dL (Not Observed); *SPE PROTEIN TOTAL 5.2 g/dL (6.0-8.5); *SPEGAMMA GLOBULIN 1.3 g/dL (0.4-1.8)
[2023-05-24 08:00] VITALS: BP 120/70; TEMP 99.3; O2SAT 98
[2023-05-24 14:12] LABS: FREE KAPPA LT CHAINS SERUM 79.7 mg/L (3.3-19.4); FREE LAMBDA LT CHAIN SERUM 64.7 mg/L (5.7-26.3); KAPPA/LAMBDA RATIO SERUM 1.23 (0.26-1.65)
[2023-05-24 15:37] LABS: BASOPHILS # (AUTO) 0.1 K/uL (0.0-0.2); BASOPHILS % (AUTO) 1.4 % (0.0-2.0); EOSINOPHILS # (AUTO) 0.1 K/uL (0.0-0.7); EOSINOPHILS % (AUTO) 0.8 % (0.0-6.0); HEMATOCRIT 28 % (33-45); HEMOGLOBIN 8.5 g/dL (11.5-14.8); LYMPHOCYTES # (AUTO) 0.9 K/uL (0.8-4.8); LYMPHOCYTES % (AUTO) 9.7 % (20.0-44.0); MEAN CORPUSCULAR HEMOGLOBIN 30 PG (26.0-33.0); MEAN CORPUSCULAR HGB CONC 31 g/dl (31.0-36.0); MEAN CORPUSCULAR VOLUME 97 fL (82-100); MONOCYTES # (AUTO) 0.6 K/uL (0.1-1.30); MONOCYTES % (AUTO) 5.8 % (2.0-12.0); NEUTROPHILS # (AUTO) 7.9 K/uL (1.8-8.9); NEUTROPHILS % (AUTO) 82.3 % (43.0-81.0); PLATELET COUNT (AUTO) 316 K/uL (150-450); RED BLOOD CELL COUNT(AUTO) 2.88 MIL/uL (4.0-5.2); RED CELL DISTRIBUTION WIDTH 17.1 % (11.5-15.0); WHITE BLOOD COUNT (AUTO) 9.6 K/uL (4.3-11.0)
[2023-05-24 15:45] LABS: CALCIUM, SERUM 8.3 mg/dL (8.5-10.1); CARBON DIOXIDE 24 mmol/L (21-32); CHLORIDE 104 mmol/L (98-107); CREATININE 1.5 mg/dL (0.6-1.3); GLUCOSE 96 mg/dL (74-106); POTASSIUM 4.1 mmol/L (3.5-5.1); SODIUM SERUM 135 mmol/L (136-145); UREA NITROGEN, BLOOD 16 mg/dL (7-18)
[2023-05-24 16:00] VITALS: BP 120/70; TEMP 99.3; O2SAT 98
[2023-05-24] MEDS: IV NS 0.9% 1,000 ML IV PRN (17:15)
[2023-05-24 20:00] VITALS: BP 103/65; TEMP 98.4; O2SAT 96
[2023-05-25 04:00] VITALS: BP 104/65; TEMP 98.4; O2SAT 94
[2023-05-25 06:38] LABS: BASOPHILS % (AUTO) 0.1 % (0.0-2.0); EOSINOPHILS # (AUTO) 0.1 K/uL (0.0-0.7); EOSINOPHILS % (AUTO) 1.4 % (0.0-6.0); HEMATOCRIT 28 % (33-45); HEMOGLOBIN 8.9 g/dL (11.5-14.8); LYMPHOCYTES % (AUTO) 12.6 % (20.0-44.0); MEAN CORPUSCULAR HEMOGLOBIN 31 PG (26.0-33.0); MEAN CORPUSCULAR HGB CONC 32 g/dl (31.0-36.0); MEAN CORPUSCULAR VOLUME 95 fL (82-100); MONOCYTES # (AUTO) 0.7 K/uL (0.1-1.30); MONOCYTES % (AUTO) 9.2 % (2.0-12.0); NEUTROPHILS # (AUTO) 6.2 K/uL (1.8-8.9); NEUTROPHILS % (AUTO) 76.7 % (43.0-81.0); PLATELET COUNT (AUTO) 286 K/uL (150-450); RED BLOOD CELL COUNT(AUTO) 2.93 MIL/uL (4.0-5.2); RED CELL DISTRIBUTION WIDTH 16.5 % (11.5-15.0)
[2023-05-25 07:00] LABS: CALCIUM, SERUM 8.3 mg/dL (8.5-10.1); CARBON DIOXIDE 23 mmol/L (21-32); CHLORIDE 105 mmol/L (98-107); CREATININE 1.4 mg/dL (0.6-1.3); GLUCOSE 81 mg/dL (74-106); POTASSIUM 3.8 mmol/L (3.5-5.1); SODIUM SERUM 136 mmol/L (136-145); UREA NITROGEN, BLOOD 13 mg/dL (7-18)
[2023-05-25 08:00] VITALS: BP 101/61; TEMP 98.6; O2SAT 94
[2023-05-25] MEDS: ENOXAPARIN SODIUM 40 MG/0.4 ML DISP.SYRIN SQ SCH (12:00)
[2023-05-25] MEDS: ERGOCALCIFEROL (VITAMIN D 2) 50,000 UNIT CAPSULE PO SCH (12:20)
[2023-05-25 16:00] VITALS: BP 123/68; TEMP 98.7; O2SAT 99
[2023-05-25] MEDS: GABAPENTIN 100 MG CAPSULE PO SCH (16:15)
[2023-05-25] MEDS: QUETIAPINE FUMARATE 25 MG TABLET PO SCH ×2 (16:16→22:28)
[2023-05-25 20:00] VITALS: BP 108/59; TEMP 98; O2SAT 95
[2023-05-26 04:00] VITALS: BP 99/59; TEMP 98; O2SAT 95
[2023-05-26 07:20] LABS: BASOPHILS # (AUTO) 0.1 K/uL (0.0-0.2); BASOPHILS % (AUTO) 0.8 % (0.0-2.0); EOSINOPHILS # (AUTO) 0.2 K/uL (0.0-0.7); HEMATOCRIT 26 % (33-45); HEMOGLOBIN 8.3 g/dL (11.5-14.8); LYMPHOCYTES # (AUTO) 1.2 K/uL (0.8-4.8); LYMPHOCYTES % (AUTO) 14.2 % (20.0-44.0); MEAN CORPUSCULAR HEMOGLOBIN 30 PG (26.0-33.0); MEAN CORPUSCULAR HGB CONC 32 g/dl (31.0-36.0); MEAN CORPUSCULAR VOLUME 96 fL (82-100); MONOCYTES # (AUTO) 0.6 K/uL (0.1-1.30); MONOCYTES % (AUTO) 7.2 % (2.0-12.0); NEUTROPHILS # (AUTO) 6.5 K/uL (1.8-8.9); NEUTROPHILS % (AUTO) 75.8 % (43.0-81.0); PLATELET COUNT (AUTO) 256 K/uL (150-450); RED BLOOD CELL COUNT(AUTO) 2.77 MIL/uL (4.0-5.2); RED CELL DISTRIBUTION WIDTH 16.8 % (11.5-15.0); WHITE BLOOD COUNT (AUTO) 8.6 K/uL (4.3-11.0)
[2023-05-26 08:00] VITALS: BP 86/46; TEMP 98.8; O2SAT 95
[2023-05-26 08:13] LABS: CARBON DIOXIDE 22 mmol/L (21-32); CHLORIDE 107 mmol/L (98-107); CREATININE 1.3 mg/dL (0.6-1.3); GLUCOSE 78 mg/dL (74-106); POTASSIUM 3.9 mmol/L (3.5-5.1); SODIUM SERUM 138 mmol/L (136-145); UREA NITROGEN, BLOOD 14 mg/dL (7-18)
[2023-05-26] MEDS: LEVOTHYROXINE SODIUM 25 MCG TABLET PO SCH (08:47)
[2023-05-26] MEDS: METOPROLOL SUCCINATE 25 MG TAB.SR.24H PO SCH (08:47)
[2023-05-26] MEDS: Fluoxetine 10 mg capsule PO SCH (08:47)
[2023-05-26] MEDS: CALCITRIOL 0.25 MCG CAPSULE PO SCH (08:47)
[2023-05-26] MEDS: MUPIROCIN OINT 2% 22 GM TUBE TP SCH (08:48)
[2023-05-26] MEDS: IV NS 0.9% 500 ML IV ONE (09:30)
[2023-05-26] MEDS: ACETAMINOPHEN 325 MG TABLET PO PRN (11:18)
[2023-05-26] MEDS ORDERED: MIDODRINE HCL (5MG) 5 MG TABLET PO SCH (12:00)
[2023-05-26] MEDS: MIDODRINE HCL (5MG) 5 MG TABLET PO SCH (12:20)
[2023-05-26 16:00] VITALS: BP 99/59; TEMP 98.9; O2SAT 95
[2023-05-26 20:00] VITALS: BP 95/64; TEMP 98.9; O2SAT 100
[2023-05-27 04:00] VITALS: BP 92/50; TEMP 98.1; O2SAT 95
[2023-05-27 07:18] LABS: BASOPHILS % (AUTO) 0.2 % (0.0-2.0); EOSINOPHILS # (AUTO) 0.1 K/uL (0.0-0.7); EOSINOPHILS % (AUTO) 1.4 % (0.0-6.0); HEMATOCRIT 28 % (33-45); HEMOGLOBIN 8.6 g/dL (11.5-14.8); LYMPHOCYTES # (AUTO) 1.1 K/uL (0.8-4.8); LYMPHOCYTES % (AUTO) 12.1 % (20.0-44.0); MEAN CORPUSCULAR HEMOGLOBIN 30 PG (26.0-33.0); MEAN CORPUSCULAR HGB CONC 31 g/dl (31.0-36.0); MEAN CORPUSCULAR VOLUME 97 fL (82-100); MONOCYTES # (AUTO) 0.8 K/uL (0.1-1.30); MONOCYTES % (AUTO) 8.2 % (2.0-12.0); NEUTROPHILS # (AUTO) 7.4 K/uL (1.8-8.9); NEUTROPHILS % (AUTO) 78.1 % (43.0-81.0); PLATELET COUNT (AUTO) 270 K/uL (150-450); RED BLOOD CELL COUNT(AUTO) 2.89 MIL/uL (4.0-5.2); RED CELL DISTRIBUTION WIDTH 17.1 % (11.5-15.0); WHITE BLOOD COUNT (AUTO) 9.4 K/uL (4.3-11.0)
[2023-05-27 08:00] VITALS: BP 90/50; TEMP 97.5; O2SAT 99
[2023-05-27 08:05] LABS: CALCIUM, SERUM 8.2 mg/dL (8.5-10.1); CREATININE 1.3 mg/dL (0.6-1.3); MAGNESIUM 1.8 mg/dL (1.8-2.4); PHOSPHORUS 2.6 mg/dL (2.5-4.9)
[2023-05-27 08:13] LABS: IRON, SERUM 12 ug/dl (50-175); TOTAL IRON BINDING CAPACITY 134 ug/dl (250-450)
[2023-05-27 08:29] LABS: FERRITIN 377 ng/mL (8-388)
[2023-05-27] MEDS ORDERED: IOHEXOL-350 100 ML VIAL IV ONE (11:08)
[2023-05-27] MEDS ORDERED: IV NS 0.9% 250 ML IV ONE (11:09)
[2023-05-27] MEDS ORDERED: CT SWABBABLE VALVE TRANS SET 1 EA INFUS.SET MC ONE (11:09)
[2023-05-27] MEDS: IV NS 0.9% 500 ML BAG IV ONE (14:33)
[2023-05-27 16:00] VITALS: BP 90/52; TEMP 98.5; O2SAT 98
[2023-05-27] MEDS: SOD FERRIC GLUC 125 MG in IV NS 0.9% 100 ML IV SCH (16:09)
[2023-05-27] MEDS: MIDODRINE HCL (5MG) 5 MG TABLET PO SCH (17:11)
[2023-05-27 20:00] VITALS: BP 92/54; TEMP 98.9; O2SAT 96
[2023-05-28 04:00] VITALS: BP 94/58; TEMP 98; O2SAT 97
[2023-05-28 07:48] LABS: BASOPHILS % (AUTO) 0.3 % (0.0-2.0); EOSINOPHILS # (AUTO) 0.1 K/uL (0.0-0.7); EOSINOPHILS % (AUTO) 0.9 % (0.0-6.0); HEMATOCRIT 28 % (33-45); HEMOGLOBIN 8.9 g/dL (11.5-14.8); LYMPHOCYTES # (AUTO) 0.8 K/uL (0.8-4.8); LYMPHOCYTES % (AUTO) 7.3 % (20.0-44.0); MEAN CORPUSCULAR HEMOGLOBIN 30 PG (26.0-33.0); MEAN CORPUSCULAR HGB CONC 31 g/dl (31.0-36.0); MEAN CORPUSCULAR VOLUME 97 fL (82-100); MONOCYTES # (AUTO) 0.8 K/uL (0.1-1.30); MONOCYTES % (AUTO) 7.4 % (2.0-12.0); NEUTROPHILS # (AUTO) 8.8 K/uL (1.8-8.9); NEUTROPHILS % (AUTO) 84.1 % (43.0-81.0); PLATELET COUNT (AUTO) 267 K/uL (150-450); RED BLOOD CELL COUNT(AUTO) 2.93 MIL/uL (4.0-5.2); RED CELL DISTRIBUTION WIDTH 17.3 % (11.5-15.0); WHITE BLOOD COUNT (AUTO) 10.4 K/uL (4.3-11.0)
[2023-05-28 08:00] VITALS: BP 85/50; TEMP 98.9; O2SAT 96
[2023-05-28 08:08] LABS: CALCIUM, SERUM 8.2 mg/dL (8.5-10.1); CARBON DIOXIDE 22 mmol/L (21-32); CHLORIDE 105 mmol/L (98-107); CREATININE 1.5 mg/dL (0.6-1.3); GLUCOSE 88 mg/dL (74-106); MAGNESIUM 1.9 mg/dL (1.8-2.4); PHOSPHORUS 3.1 mg/dL (2.5-4.9); POTASSIUM 3.8 mmol/L (3.5-5.1); SODIUM SERUM 137 mmol/L (136-145); UREA NITROGEN, BLOOD 15 mg/dL (7-18)
[2023-05-28] MEDS: IV NS 0.9% 500 ML IV ONE (11:38)
[2023-05-28] MEDS: PEG 3350/NA SULF,BICARB,CL/KCL 4,000 ML BOTTLE PO ONE (12:39)
[2023-05-28 16:00] VITALS: BP 99/58; TEMP 97.5; O2SAT 96
[2023-05-28 20:22] VITALS: BP 104/59; TEMP 97.3; O2SAT 99
[2023-05-29 04:00] VITALS: BP 156/47; TEMP 96.8; O2SAT 98
[2023-05-29 08:35] VITALS: BP 114/73; TEMP 97.5; O2SAT 96
[2023-05-29] MEDS ORDERED: ANESTHESIA TRAY IN PYXIS 1 EA TRAY MC ONE (09:19)
[2023-05-29 14:45] LABS: BASOPHILS % (AUTO) 0.2 % (0.0-2.0); EOSINOPHILS # (AUTO) 0.1 K/uL (0.0-0.7); EOSINOPHILS % (AUTO) 0.5 % (0.0-6.0); HEMATOCRIT 26 % (33-45); HEMOGLOBIN 8.3 g/dL (11.5-14.8); LYMPHOCYTES # (AUTO) 0.6 K/uL (0.8-4.8); LYMPHOCYTES % (AUTO) 5.9 % (20.0-44.0); MEAN CORPUSCULAR HEMOGLOBIN 30 PG (26.0-33.0); MEAN CORPUSCULAR HGB CONC 32 g/dl (31.0-36.0); MEAN CORPUSCULAR VOLUME 95 fL (82-100); MONOCYTES # (AUTO) 0.8 K/uL (0.1-1.30); MONOCYTES % (AUTO) 7.8 % (2.0-12.0); NEUTROPHILS # (AUTO) 9.2 K/uL (1.8-8.9); NEUTROPHILS % (AUTO) 85.6 % (43.0-81.0); PLATELET COUNT (AUTO) 253 K/uL (150-450); RED BLOOD CELL COUNT(AUTO) 2.76 MIL/uL (4.0-5.2); RED CELL DISTRIBUTION WIDTH 17.2 % (11.5-15.0); WHITE BLOOD COUNT (AUTO) 10.7 K/uL (4.3-11.0)
[2023-05-29 15:01] LABS: INR 1.13 (0.91-1.10); PARTIAL THROMBOPLASTIN TIME 37.6 SEC (24.3-34.3); PROTHROMBIN TIME 11.9 SECS (9.2-11.1)
[2023-05-29 15:36] LABS: CALCIUM, SERUM 8.1 mg/dL (8.5-10.1); CARBON DIOXIDE 24 mmol/L (21-32); CHLORIDE 100 mmol/L (98-107); CREATININE 1.4 mg/dL (0.6-1.3); GLUCOSE 94 mg/dL (74-106); MAGNESIUM 1.8 mg/dL (1.8-2.4); PHOSPHORUS 3.1 mg/dL (2.5-4.9); POTASSIUM 3.4 mmol/L (3.5-5.1); SODIUM SERUM 133 mmol/L (136-145); UREA NITROGEN, BLOOD 12 mg/dL (7-18)
[2023-05-29 15:57] LABS: BAND % (MANUAL) 1 % (0.0-5.0); EOSINOPHILS % (MANUAL) 1 % (0-4); LYMPHOCYTES % (MANUAL) 5 % (16-48); MONOCYTES % (MANUAL) 8 % (0-11.0); NEUTROPHILS % (MANUAL) 85 (42-76); PLATELET ESTIMATE ADEQUATE
[2023-05-29 16:35] VITALS: BP 99/60; TEMP 97.5; O2SAT 96
[2023-05-29 20:00] VITALS: BP 83/43; TEMP 99.1; O2SAT 99
[2023-05-30 04:00] VITALS: BP 100/56; TEMP 97.7; O2SAT 98
[2023-05-30 07:36] LABS: BASOPHILS % (AUTO) 0.1 % (0.0-2.0); EOSINOPHILS # (AUTO) 0.2 K/uL (0.0-0.7); EOSINOPHILS % (AUTO) 1.9 % (0.0-6.0); HEMATOCRIT 25 % (33-45); HEMOGLOBIN 7.7 g/dL (11.5-14.8); LYMPHOCYTES # (AUTO) 0.8 K/uL (0.8-4.8); LYMPHOCYTES % (AUTO) 10.2 % (20.0-44.0); MEAN CORPUSCULAR HEMOGLOBIN 30 PG (26.0-33.0); MEAN CORPUSCULAR HGB CONC 31 g/dl (31.0-36.0); MEAN CORPUSCULAR VOLUME 97 fL (82-100); MONOCYTES # (AUTO) 0.8 K/uL (0.1-1.30); MONOCYTES % (AUTO) 9.9 % (2.0-12.0); NEUTROPHILS # (AUTO) 6.2 K/uL (1.8-8.9); NEUTROPHILS % (AUTO) 77.9 % (43.0-81.0); PLATELET COUNT (AUTO) 244 K/uL (150-450); RED BLOOD CELL COUNT(AUTO) 2.55 MIL/uL (4.0-5.2); RED CELL DISTRIBUTION WIDTH 17.4 % (11.5-15.0); WHITE BLOOD COUNT (AUTO) 7.9 K/uL (4.3-11.0)
[2023-05-30 08:00] VITALS: BP 102/63; TEMP 97.7; O2SAT 97
[2023-05-30 08:27] LABS: CALCIUM, SERUM 8.2 mg/dL (8.5-10.1); CARBON DIOXIDE 23 mmol/L (21-32); CHLORIDE 107 mmol/L (98-107); CREATININE 1.3 mg/dL (0.6-1.3); GLUCOSE 78 mg/dL (74-106); MAGNESIUM 1.9 mg/dL (1.8-2.4); PHOSPHORUS 3.7 mg/dL (2.5-4.9); POTASSIUM 3.5 mmol/L (3.5-5.1); SODIUM SERUM 139 mmol/L (136-145); UREA NITROGEN, BLOOD 13 mg/dL (7-18)
[2023-05-30 16:00] VITALS: BP 96/62; TEMP 97.3; O2SAT 98
[2023-05-30 21:05] VITALS: BP 92/56; TEMP 97.9; O2SAT 100
[2023-05-31 01:09] LABS: AFP, TUMOR MARKER <1.8 ng/mL (0.0-9.2); CARBOHYDRATE AG 19-9 12 U/mL (0-35)
[2023-05-31 04:52] VITALS: BP 92/55; TEMP 97.9; O2SAT 98
[2023-05-31 07:25] LABS: BASOPHILS % (AUTO) 0.2 % (0.0-2.0); CALCIUM, SERUM 8.3 mg/dL (8.5-10.1); CARBON DIOXIDE 24 mmol/L (21-32); CHLORIDE 105 mmol/L (98-107); CREATININE 1.4 mg/dL (0.6-1.3); EOSINOPHILS # (AUTO) 0.2 K/uL (0.0-0.7); EOSINOPHILS % (AUTO) 2.3 % (0.0-6.0); GLUCOSE 74 mg/dL (74-106); HEMATOCRIT 25 % (33-45); LYMPHOCYTES # (AUTO) 0.9 K/uL (0.8-4.8); LYMPHOCYTES % (AUTO) 11.8 % (20.0-44.0); MEAN CORPUSCULAR HEMOGLOBIN 31 PG (26.0-33.0); MEAN CORPUSCULAR HGB CONC 32 g/dl (31.0-36.0); MEAN CORPUSCULAR VOLUME 96 fL (82-100); MONOCYTES # (AUTO) 0.6 K/uL (0.1-1.30); MONOCYTES % (AUTO) 7.4 % (2.0-12.0); NEUTROPHILS % (AUTO) 78.3 % (43.0-81.0); PHOSPHORUS 3.1 mg/dL (2.5-4.9); PLATELET COUNT (AUTO) 264 K/uL (150-450); POTASSIUM 3.7 mmol/L (3.5-5.1); RED BLOOD CELL COUNT(AUTO) 2.61 MIL/uL (4.0-5.2); SODIUM SERUM 137 mmol/L (136-145); UREA NITROGEN, BLOOD 15 mg/dL (7-18); WHITE BLOOD COUNT (AUTO) 7.7 K/uL (4.3-11.0)
[2023-05-31 08:00] VITALS: BP 95/58; TEMP 97.9; O2SAT 98
[2023-05-31 16:00] VITALS: BP 92/59; TEMP 98.1; O2SAT 98
[2023-05-31 20:00] VITALS: BP 84/41; TEMP 97.9; O2SAT 98
[2023-06-01 04:00] VITALS: BP 96/53; TEMP 98; O2SAT 98
[2023-06-01] MEDS: HYDROCODONE/APAP 10/325MG TABLET PO PRN (04:10)
[2023-06-01 08:00] VITALS: BP 84/61; TEMP 97.5; O2SAT 96
[2023-06-01 15:21] LABS: TOTAL VOLUME,BODY FLUID 20 mL
[2023-06-01 15:46] LABS: PROTEIN, BODY FLUID 2.3 G/DL
[2023-06-01 16:00] VITALS: BP 107/66; TEMP 97.9; O2SAT 97
[2023-06-01 16:22] VITALS: BP 107/66
[2023-06-01 21:22] LABS: WBC, BODY FLUID 409500 /cu. mm. (0-200)
[2023-06-01 21:24] LABS: APPEARANCE,SPUN,BODY FLUID HAZY (CLEAR)
[2023-06-01 22:49] LABS: POLYNUCLEAR, BODY FLUID 100 % (0-25)
== END 2023-06-01 20:37 | DRG 603 ==
LOC: ER 11:38 → MEDSG1 15:36
PROVIDERS: ADMIT Nurse Practitioner Acute Care
PROC: 05HB33Z Insertion of Infusion Device into Right Basilic Vein, Percutaneous Approach (ICD-10-PCS; principal; 2023-05-20)
PROC: B54MZZA Ultrasonography of Right Upper Extremity Veins, Guidance (ICD-10-PCS; 2023-05-20)
PROC: 05HC33Z Insertion of Infusion Device into Left Basilic Vein, Percutaneous Approach (ICD-10-PCS; 2023-05-28)
PROC: B54NZZA Ultrasonography of Left Upper Extremity Veins, Guidance (ICD-10-PCS; 2023-05-28)
PROC: 0DB98ZX Excision of Duodenum, Via Natural or Artificial Opening Endoscopic, Diagnostic (ICD-10-PCS; 2023-05-29)
PROC: 0DBL8ZX Excision of Transverse Colon, Via Natural or Artificial Opening Endoscopic, Diagnostic (ICD-10-PCS; 2023-05-29)
PROC: 0DBL8ZZ Excision of Transverse Colon, Via Natural or Artificial Opening Endoscopic (ICD-10-PCS; 2023-05-29)
PROC: 07D53ZX Extraction of Right Axillary Lymphatic, Percutaneous Approach, Diagnostic (ICD-10-PCS; 2023-06-01)
PROC: 0X943ZZ Drainage of Right Axilla, Percutaneous Approach (ICD-10-PCS; 2023-06-01)
DX: L02.411 Cutaneous abscess of right axilla (principal); D68.59 Other primary thrombophilia; I48.20 Chronic atrial fibrillation, unspecified; N17.9 Acute kidney failure, unspecified; I89.8 Other specified noninfective disorders of lymphatic vessels and lymph nodes; I12.9 Hypertensive chronic kidney disease with stage 1 through stage 4 chronic kidney disease, or unspecified chronic kidney disease; N18.9 Chronic kidney disease, unspecified; G47.33 Obstructive sleep apnea (adult) (pediatric); I25.10 Atherosclerotic heart disease of native coronary artery without angina pectoris; D47.2 Monoclonal gammopathy; Z20.822 Contact with and (suspected) exposure to COVID-19; D50.9 Iron deficiency anemia, unspecified; D63.8 Anemia in other chronic diseases classified elsewhere; E03.9 Hypothyroidism, unspecified; F31.9 Bipolar disorder, unspecified; Z87.440 Personal history of urinary (tract) infections; Z98.84 Bariatric surgery status; K63.5 Polyp of colon; K64.8 Other hemorrhoids; K76.0 Fatty (change of) liver, not elsewhere classified; Z79.01 Long term (current) use of anticoagulants; Z85.038 Personal history of other malignant neoplasm of large intestine; Z68.38 Body mass index [BMI] 38.0-38.9, adult; E66.9 Obesity, unspecified; D12.3 Benign neoplasm of transverse colon; Z85.528 Personal history of other malignant neoplasm of kidney; Z90.49 Acquired absence of other specified parts of digestive tract; N20.0 Calculus of kidney; K57.30 Diverticulosis of large intestine without perforation or abscess without bleeding; Z92.21 Personal history of antineoplastic chemotherapy; K76.89 Other specified diseases of liver; N64.4 Mastodynia; Z79.899 Other long term (current) drug therapy; Z90.5 Acquired absence of kidney; K44.9 Diaphragmatic hernia without obstruction or gangrene
CPT/HCPCS: 36410; 36415; 71045-TC; 71260-TC; 75989; 76641-TC; 76942-TC; 80048-TC; 80053-TC; 80076-TC; 82105; 82232; 82378; 82550-TC; 82607-TC; 82728-TC; 82784; 82962-TC; 83540-TC; 83615-TC; 83735-TC; 83921; 83970; 84100-TC; 84155; 84165; 84443-TC; 84484-TC; 85025-TC; 85730-TC; 86300; 86301; 86334; 86850-TC; 87081-TC; 89051-TC; A4223; G0378; J1650; J2405; J2704; J2916; J3490; J7030; J7040; J7050; Q9967

== ENCOUNTER 2023-12-30 18:24 | Inpatient (IN) | payer MEDICARE, OTHER ==
[~2023-12-30] VITALS: Ht 167.6 cm; Wt 106.1 kg
[~2023-12-30 18:24] MED LIST changes: +ALLA266C2 TP; -FAMO-131 PO; +GABA-532 PO; -HYDR-3642 PO; -MAG30ORA PO; +MAG355OR18 PO; +MUPI15CR TP; -QUET25TA PO; -ZOLP5TAB2 PO
[2023-12-30] MEDS: IV NS 0.9% 500 ML BAG IV ONE (18:56)
[2023-12-30 19:03] LABS: BASOPHILS % (AUTO) 0.4 % (0.0-2.0); EOSINOPHILS # (AUTO) 0.2 K/uL (0.0-0.7); EOSINOPHILS % (AUTO) 3.8 % (0.0-6.0); HEMATOCRIT 33 % (33-45); HEMOGLOBIN 10.7 g/dL (11.5-14.8); LYMPHOCYTES % (AUTO) 30.3 % (20.0-44.0); MEAN CORPUSCULAR HEMOGLOBIN 36 PG (26.0-33.0); MEAN CORPUSCULAR HGB CONC 33 g/dl (31.0-36.0); MEAN CORPUSCULAR VOLUME 111 fL (82-100); MONOCYTES # (AUTO) 0.5 K/uL (0.1-1.30); NEUTROPHILS # (AUTO) 3.9 K/uL (1.8-8.9); NEUTROPHILS % (AUTO) 58.5 % (43.0-81.0); PLATELET COUNT (AUTO) 190 K/uL (150-450); RED BLOOD CELL COUNT(AUTO) 2.94 MIL/uL (4.0-5.2); WHITE BLOOD COUNT (AUTO) 6.6 K/uL (4.3-11.0)
[2023-12-30] MEDS ORDERED: FLUO40CA49 PO (19:07)
[2023-12-30] MEDS ORDERED: DEXT15DR23 EACHEYE (19:07)
[2023-12-30] MEDS ORDERED: FLUD0.1T PO (19:07)
[2023-12-30] MEDS ORDERED: FERR325T28 PO (19:07)
[2023-12-30] MEDS ORDERED: HYDR-3980 PO (19:07)
[2023-12-30] MEDS ORDERED: HYDR-4303 PO (19:07)
[2023-12-30] MEDS ORDERED: NALO4SPR NS (19:08)
[2023-12-30] MEDS ORDERED: MIDO10TA PO (19:08)
[2023-12-30] MEDS ORDERED: ERGO50CA PO (19:08)
[2023-12-30] MEDS ORDERED: MULT-213 PO (19:08)
[2023-12-30] MEDS ORDERED: PANT40TA2 PO (19:08)
[2023-12-30 19:20] LABS: ALANINE AMINOTRANSFERASE 13 U/L (12-78); ALBUMIN 1.5 g/dL (3.4-5.0); ALKALINE PHOSPHATASE 99 U/L (46-116); ASPARTATE AMINOTRANSFERASE 27 U/L (15-37); BILIRUBIN,DIRECT 0.3 mg/dL (0.0-0.2); BILIRUBIN,TOTAL 0.7 mg/dL (0.2-1.0); CALCIUM, SERUM 7.8 mg/dL (8.5-10.1); CARBON DIOXIDE 25 mmol/L (21-32); CHLORIDE 113 mmol/L (98-107); CREATININE 1.1 mg/dL (0.6-1.3); GLUCOSE 89 mg/dL (74-106); POTASSIUM 3.8 mmol/L (3.5-5.1); SODIUM SERUM 143 mmol/L (136-145); TOTAL PROTEIN, SERUM 4.5 g/dL (6.4-8.2); UREA NITROGEN, BLOOD 17 mg/dL (7-18)
[2023-12-30 19:59] LABS: LACTIC ACID 2.5 mmol/L (0.4-2.0)
[2023-12-30] MEDS: IV NS 0.9% 1,000 ML BAG IV ONE (20:32)
[2023-12-30 20:56] LABS: APPEARANCE,URINE Slightly Cloudy (CLEAR); BILIRUBIN,URINE Negative (NEGATIVE); BLOOD, URINE Trace-lysed Ery/uL (NEGATIVE); COLOR,URINE YELLOW (YELLOW); KETONES,URINE Negative (NEGATIVE); LEUKOCYTE ESTERASE ,URINE Large (NEGATIVE); NITRITE, URINE Negative (NEGATIVE); PH,URINE 5.5 (5.0-8.0); PROTEIN,URINE Negative (NEGATIVE); UGLUCOSE Negative (NEGATIVE); UROBILINOGEN,URINE 0.2 EU/dL (0.2)
[2023-12-30 21:35] LABS: ADD URINE CULTURE YES; BACTERIA,URINE Many /HPF (None Seen); SQUAMOUS EPITHELIAL CELL,UR Few /HPF (None Seen); WBC,URINE 81-100 /HPF (0-3)
[2023-12-30] MEDS ORDERED: ACETAMINOPHEN 325 MG TABLET PO PRN (22:00)
[2023-12-30] MEDS ORDERED: ONDANSETRON HCL/PF 4 MG/2 ML VIAL IVP PRN (22:00)
[2023-12-30] MEDS ORDERED: MAG HYDROX/AL HYDROX/SIMETH 30 ML UDC PO PRN (22:00)
[2023-12-30] MEDS ORDERED: Z GUARD REMEDY 4 OZ OINT TP PRN (22:00)
[2023-12-30] MEDS ORDERED: MAGNESIUM HYDROXIDE 30 ML UDC PO PRN (22:00)
[2023-12-30 22:15] VITALS: BP 111/66; TEMP 97.5; O2SAT 98
[2023-12-30] MEDS ORDERED: HYDROCODONE/APAP 10/325MG TABLET PO PRN (22:30)
[2023-12-30 23:00] VITALS: BP 111/66; TEMP 97.5; O2SAT 98
[2023-12-30] MEDS ORDERED: QUETIAPINE FUMARATE 25 MG TABLET PO SCH (23:00)
[2023-12-30 23:44] LABS: EOSINOPHILS % (MANUAL) 3 % (0-4); LYMPHOCYTES % (MANUAL) 30 % (16-48); MONOCYTES % (MANUAL) 7 % (0-11.0); NEUTROPHILS % (MANUAL) 60 (42-76); PLATELET ESTIMATE ADEQUATE
[2023-12-31] MEDS ORDERED: CEFTRIAXONE 1GM BAG (ER ONLY) 100 ML IV ONE (02:48)
[2023-12-31] MEDS: CEFTRIAXONE 2 G in IV D5W 100 ML IV SCH (02:54)
[2023-12-31 06:17] LABS: BASOPHILS % (AUTO) 0.5 % (0.0-2.0); EOSINOPHILS # (AUTO) 0.2 K/uL (0.0-0.7); EOSINOPHILS % (AUTO) 3.3 % (0.0-6.0); HEMATOCRIT 34 % (33-45); HEMOGLOBIN 11.2 g/dL (11.5-14.8); LYMPHOCYTES # (AUTO) 1.9 K/uL (0.8-4.8); LYMPHOCYTES % (AUTO) 26.4 % (20.0-44.0); MEAN CORPUSCULAR HEMOGLOBIN 37 PG (26.0-33.0); MEAN CORPUSCULAR HGB CONC 33 g/dl (31.0-36.0); MEAN CORPUSCULAR VOLUME 113 fL (82-100); MONOCYTES # (AUTO) 0.5 K/uL (0.1-1.30); MONOCYTES % (AUTO) 7.6 % (2.0-12.0); NEUTROPHILS # (AUTO) 4.5 K/uL (1.8-8.9); NEUTROPHILS % (AUTO) 62.2 % (43.0-81.0); PLATELET COUNT (AUTO) 200 K/uL (150-450); RED BLOOD CELL COUNT(AUTO) 3.06 MIL/uL (4.0-5.2); RED CELL DISTRIBUTION WIDTH 14.9 % (11.5-15.0); WHITE BLOOD COUNT (AUTO) 7.2 K/uL (4.3-11.0)
[2023-12-31 06:38] LABS: CARBON DIOXIDE 21 mmol/L (21-32); CHLORIDE 113 mmol/L (98-107); GLUCOSE 78 mg/dL (74-106); MAGNESIUM 2.2 mg/dL (1.8-2.4); PHOSPHORUS 2.9 mg/dL (2.5-4.9); SODIUM SERUM 143 mmol/L (136-145); UREA NITROGEN, BLOOD 15 mg/dL (7-18)
[2023-12-31 08:00] VITALS: BP 99/68; TEMP 97.1; O2SAT 100
[2023-12-31] MEDS: FLUDROCORTISONE 0.1 MG TABLET PO SCH (08:43)
[2023-12-31] MEDS: FLUOXETINE HCL 20 MG CAPSULE PO SCH (08:43)
[2023-12-31] MEDS: MULTIVIT W/MINERALS 1 TAB TABLET PO SCH (08:44)
[2023-12-31] MEDS: DOCUSATE SODIUM 100 MG CAPSULE PO SCH (08:44)
[2023-12-31] MEDS: GABAPENTIN 100 MG CAPSULE PO SCH (08:44)
[2023-12-31] MEDS: MIDODRINE HCL (5MG) 5 MG TABLET PO SCH (08:44)
[2023-12-31] MEDS: FERROUS SULFATE (325 MG) 325 MG/TAB TABLET PO SCH (08:45)
[2023-12-31] MEDS: PANTOPRAZOLE 40 MG TABLET.DR PO SCH (08:45)
[2023-12-31] MEDS: HYDROCODONE/APAP 5/325MG TABLET PO PRN (08:50)
[2023-12-31] MEDS: LEVOTHYROXINE SODIUM 25 MCG TABLET PO SCH (08:51)
[2023-12-31] MEDS: APIXABAN 5 MG TABLET PO SCH (08:53)
[2023-12-31] MEDS ORDERED: PANTOPRAZOLE 40 MG VIAL IV SCH (09:00)
[2023-12-31] MEDS ORDERED: ENOXAPARIN SODIUM 40 MG/0.4 ML DISP.SYRIN SQ SCH (09:00)
[2023-12-31] MEDS: POLYVINYL ALCOHOL 15 ML BOTTLE EACHEYE SCH (09:36)
[2023-12-31] MEDS: POTASSIUM CHLORIDE 20 MEQ TAB.PRT.SR PO SCH (10:30)
[2023-12-31 18:31] VITALS: BP 100/64; TEMP 97.7; O2SAT 94
[2023-12-31 20:00] VITALS: BP 103/58; TEMP 97.8; O2SAT 98
[2024-01-01] MEDS: CEFTRIAXONE 2 G in IV D5W 100 ML IV SCH (01:36)
[2024-01-01 07:01] LABS: BASOPHILS % (AUTO) 0.5 % (0.0-2.0); EOSINOPHILS # (AUTO) 0.2 K/uL (0.0-0.7); EOSINOPHILS % (AUTO) 2.8 % (0.0-6.0); HEMATOCRIT 35 % (33-45); HEMOGLOBIN 11.5 g/dL (11.5-14.8); LYMPHOCYTES % (AUTO) 32.6 % (20.0-44.0); MEAN CORPUSCULAR HEMOGLOBIN 37 PG (26.0-33.0); MEAN CORPUSCULAR HGB CONC 33 g/dl (31.0-36.0); MEAN CORPUSCULAR VOLUME 112 fL (82-100); MONOCYTES # (AUTO) 0.3 K/uL (0.1-1.30); MONOCYTES % (AUTO) 5.5 % (2.0-12.0); NEUTROPHILS # (AUTO) 3.7 K/uL (1.8-8.9); NEUTROPHILS % (AUTO) 58.6 % (43.0-81.0); PLATELET COUNT (AUTO) 194 K/uL (150-450); RED BLOOD CELL COUNT(AUTO) 3.17 MIL/uL (4.0-5.2); RED CELL DISTRIBUTION WIDTH 14.6 % (11.5-15.0); WHITE BLOOD COUNT (AUTO) 6.3 K/uL (4.3-11.0)
[2024-01-01 07:18] LABS: CALCIUM, SERUM 8.5 mg/dL (8.5-10.1); CARBON DIOXIDE 20 mmol/L (21-32); CHLORIDE 111 mmol/L (98-107); CREATININE 0.8 mg/dL (0.6-1.3); GLUCOSE 73 mg/dL (74-106); POTASSIUM 4.3 mmol/L (3.5-5.1); SODIUM SERUM 141 mmol/L (136-145); UREA NITROGEN, BLOOD 14 mg/dL (7-18)
[2024-01-01 08:20] VITALS: BP 100/58; TEMP 98.1; O2SAT 97
[2024-01-01 16:10] VITALS: BP 107/56; TEMP 98.2; O2SAT 95
[2024-01-01 20:31] VITALS: BP 118/81; TEMP 98.2; O2SAT 98
[2024-01-02 06:27] LABS: BASOPHILS # (AUTO) 0.1 K/uL (0.0-0.2); BASOPHILS % (AUTO) 0.9 % (0.0-2.0); EOSINOPHILS # (AUTO) 0.2 K/uL (0.0-0.7); EOSINOPHILS % (AUTO) 3.8 % (0.0-6.0); HEMATOCRIT 31 % (33-45); HEMOGLOBIN 10.3 g/dL (11.5-14.8); LYMPHOCYTES # (AUTO) 2.3 K/uL (0.8-4.8); LYMPHOCYTES % (AUTO) 37.3 % (20.0-44.0); MEAN CORPUSCULAR HEMOGLOBIN 37 PG (26.0-33.0); MEAN CORPUSCULAR HGB CONC 33 g/dl (31.0-36.0); MEAN CORPUSCULAR VOLUME 110 fL (82-100); MONOCYTES # (AUTO) 0.6 K/uL (0.1-1.30); MONOCYTES % (AUTO) 8.9 % (2.0-12.0); NEUTROPHILS % (AUTO) 49.1 % (43.0-81.0); PLATELET COUNT (AUTO) 204 K/uL (150-450); RED BLOOD CELL COUNT(AUTO) 2.81 MIL/uL (4.0-5.2); RED CELL DISTRIBUTION WIDTH 14.1 % (11.5-15.0); WHITE BLOOD COUNT (AUTO) 6.2 K/uL (4.3-11.0)
[2024-01-02 08:00] VITALS: BP 102/54; TEMP 99.1; O2SAT 98
[2024-01-02 08:21] LABS: CALCIUM, SERUM 8.6 mg/dL (8.5-10.1); CARBON DIOXIDE 23 mmol/L (21-32); CHLORIDE 110 mmol/L (98-107); CREATININE 0.8 mg/dL (0.6-1.3); GLUCOSE 78 mg/dL (74-106); POTASSIUM 3.8 mmol/L (3.5-5.1); SODIUM SERUM 141 mmol/L (136-145); UREA NITROGEN, BLOOD 13 mg/dL (7-18)
[2024-01-02] MEDS: CALCITRIOL 0.25 MCG CAPSULE PO SCH (09:27)
[2024-01-02] MEDS ORDERED: NITR100C6 PO (09:34)
[2024-01-02 16:00] VITALS: BP 115/50; TEMP 98.6; O2SAT 98
[2024-01-02 17:00] VITALS: BP 120/70
[2024-01-04] MEDS ORDERED: CHOLECALCIFEROL 1,000 UNIT TABLET (VIT D3) PO SCH (09:00)
== END 2024-01-02 18:05 | DRG 690 ==
LOC: ER 18:28 → MED 21:49
PROVIDERS: ATTEND Internal Medicine
DX: N39.0 Urinary tract infection, site not specified (principal); D68.69 Other thrombophilia; E87.20 Acidosis, unspecified; I48.91 Unspecified atrial fibrillation; D53.9 Nutritional anemia, unspecified; E03.9 Hypothyroidism, unspecified; E66.01 Morbid (severe) obesity due to excess calories; F20.9 Schizophrenia, unspecified; K21.9 Gastro-esophageal reflux disease without esophagitis; I25.10 Atherosclerotic heart disease of native coronary artery without angina pectoris; N18.9 Chronic kidney disease, unspecified; Z74.01 Bed confinement status; Z79.01 Long term (current) use of anticoagulants; R53.1 Weakness; G47.33 Obstructive sleep apnea (adult) (pediatric); F29 Unspecified psychosis not due to a substance or known physiological condition; F43.10 Post-traumatic stress disorder, unspecified; F32.9 Major depressive disorder, single episode, unspecified; I12.9 Hypertensive chronic kidney disease with stage 1 through stage 4 chronic kidney disease, or unspecified chronic kidney disease; S46.011A Strain of muscle(s) and tendon(s) of the rotator cuff of right shoulder, initial encounter; W19.XXXA Unspecified fall, initial encounter; Y93.9 Activity, unspecified; Y92.129 Unspecified place in nursing home as the place of occurrence of the external cause; Z85.038 Personal history of other malignant neoplasm of large intestine; Z91.048 Other nonmedicinal substance allergy status; Z68.37 Body mass index [BMI] 37.0-37.9, adult
CPT/HCPCS: 36415; 70450-TC; 71045-TC; 73030-TC; 73060-TC; 80048-TC; 80076-TC; 81001; 83605-TC; 83735-TC; 84100-TC; 84484-TC; 85025-TC; 87040-TC; 87081-TC; 87086-TC; 97110-TC; 97112-TC; 97116-TC; 97530-TC; A4223; G0378; J0696; J7050; J7060